=== PATIENT | female | born 1990 | race Asian ===

== ENCOUNTER 2019-07-10 10:58 | Emergency (ER) | payer OTHER ==
[~2019-07-10] VITALS: Ht 175.3 cm; Wt 58.1 kg
[2019-07-10 11:05] VITALS: BP 113/62; TEMP 97.9
== END 2019-07-10 12:53 | disposition home or self-care (01) ==
LOC: ED 10:58
DX: J02.9 Acute pharyngitis, unspecified (principal)
CPT/HCPCS: 87502; 87651; 99283